=== PATIENT | male | born 1995 | race Caucasian/White ===

== ENCOUNTER 2018-11-04 09:04 | Emergency (ER) | payer BC, OTHER ==
[2018-11-04 09:11] VITALS: BP 155/76; PULSE 87; RESP 20; TEMP 97.8
--- NOTE | 2018-11-04 09:42 | ED ---
General Adult HPI - General Chief complaint: Anxiety Stated complaint: Anxiety Time Seen by Provider: 11/04/18 09:15 Source: patient, RN notes reviewed, old records reviewed Mode of arrival: ambulatory Limitations: no limitations - History of Present Illness Initial comments: Patient's 23-year-old male presented to the emergency room today with a chief complaint of increased anxiety. 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 He states he was released 4 days ago. He states last night he woke up having a panic attack. He does admit that his heart was racing and he felt some tightness in his chest. He states that he had anxiety in the past was on Klonopin in the past. He also admits that his taken Ativan, Xanax, Valium in the past at times. Patient states currently not taking anything. He states she's not sure if it's related to the fact that he's recently released and he is feeling very unsure. Patient denies any suicidal or homicidal thoughts or plans. Patient is currently staying with his mother. Patient denies any other complaints. He does admit that the symptoms have calmed down but is worried that they're going to come back. Patient denies any recent fever , chills, shortness of breath, chest pain, back pain, numbness or tingling, headaches or visual changes, or any other complaints. - Related Data Home Medications Medication Instructions Recorded Confirmed Buprenorphine HCl/Naloxone HCl 1 each SL BID 07/22/14 07/29/14 [Suboxone 8 mg-2 mg Sl Film] QUEtiapine [SEROquel] 200 mg PO BID 07/22/14 07/29/14 Citalopram Hydrobromide [CeleXA] 40 mg PO DAILY 07/29/14 07/29/14 Gabapentin [Neurontin] 800 mg PO BID 07/29/14 07/29/14 LORazepam [Ativan] 0.5 mg PO TID 07/29/14 07/29/14 Previous Rx's Medication Instructions Recorded Divalproex ER [Depakote ER] 500 mg PO BID #60 tab.er.24h 06/29/14 LORazepam [Ativan] 0.5 mg PO TID PRN 3 Days #8 tab 11/04/18 Allergies Allergy/AdvReac Type Severity Reaction Status Date / Time latex Allergy Rash/Hives Verified 11/04/18 09:11 Review of Systems ROS Statement: Those systems with pertinent positive or pertinent negative responses have been documented in the HPI. ROS Other: All systems not noted in ROS Statement are negative. Past Medical History Past Medical History: Seizure Disorder Additional Past Medical History / Comment(s): CHRONIC NECK PAIN, ANXIETY BIPOLAR , last seizure last week History of Any Multi-Drug Resistant Organisms: None Reported Past Surgical History: Tonsillectomy Past Psychological History: ADD/ADHD, Anxiety, Bipolar, Depression Smoking Status: Current every day smoker Past Alcohol Use History: Rare Past Drug Use History: Heroin, Marijuana, Opiates, Prescription Drug Abuse - Past Family History Mother Family Medical History: CVA/TIA General Exam - General Exam Comments Initial Comments: General: The patient is awake and alert, in no distress, and does not appear acutely ill. Eye: There is normal conjunctiva bilaterally. No signs of icterus. Ears, nose, mouth and throat: There are moist mucous membranes and no oral lesions. Neck: The neck is supple, there is no tenderness or JVD. Cardiovascular: There is a regular rate and rhythm. No murmur, rub or gallop is appreciated. Respiratory: Lungs are clear to auscultation, respirations are non-labored, breath sounds are equal. No wheezes, stridor, rales, or rhonchi. Musculoskeletal: Normal ROM, no tenderness. . Neurological: A&O x 3. CN II-XII intact, There are no obvious motor or sensory deficits. Coordination appears grossly intact. Speech is normal. Skin: Skin is warm and dry and no rashes or lesions are noted. Psychiatric: Cooperative, appropriate mood & affect, normal judgment. Limitations: no limitations Course Vital Signs 11/04/18 09:09 Temperature 97.8 F Pulse Rate 87 Respiratory 20 Rate Blood Pressure 155/76 O2 Sat by Pulse 98 Oximetry Medical Decision Making - Medical Decision Making [place] automated prescription system was checked showing the patient has not received any recent prescriptions of controlled substance. Patient does have history of anxiety. Old records were reviewed here or showing the patient had had Valium in the past. Patient will be given a short prescription of Ativan a total of 8 tablets. He is advised to use only if needed. Patient does have a appointment with family physician on Sunday. He has no thoughts of hurting himself or others. Patient will be discharged advised return for any other concerns. Disposition Clinical Impression: Acute anxiety Disposition: HOME SELF-CARE Condition: Good Instructions: Generalized Anxiety Disorder (ED) Additional Instructions: Please use medication as discussed. Please follow-up with family doctor in the next 2-5 days of symptoms have not improved. Please return to emergency room if the symptoms increase or worsen or for any other concerns. Prescriptions: LORazepam [Ativan] 0.5 mg PO TID PRN 3 Days #8 tab PRN Reason: Anxiety Is patient prescribed a controlled substance at d/c from ED?: Yes When asked, does pt state using other controlled substances?: No If prescribed controlled substance>3 days was MAPS reviewed?: Prescribed <3 Days Referrals: None,Stated [Primary Care Provider] - 1-2 days Time of Disposition: 09:41
== END 2018-11-04 09:49 | disposition home or self-care (01) ==
LOC: EC 09:04
DX: F41.0 Panic disorder [episodic paroxysmal anxiety] (principal); R07.89 Other chest pain; G40.909 Epilepsy, unspecified, not intractable, without status epilepticus; F90.9 Attention-deficit hyperactivity disorder, unspecified type; F31.9 Bipolar disorder, unspecified; F17.200 Nicotine dependence, unspecified, uncomplicated; Z79.899 Other long term (current) drug therapy; Z91.040 Latex allergy status
CPT/HCPCS: 99283

== ENCOUNTER 2018-11-08 09:24 | Emergency (ER) | payer OTHER ==
[2018-11-08 09:33] VITALS: BP 154/81; PULSE 90; RESP 18; TEMP 97.6
[2018-11-08] MEDS ORDERED: LORazepam 1 MG TAB PO STA (09:56)
--- NOTE | 2018-11-08 10:01 | ED ---
General Adult HPI - General Chief complaint: Recheck/Abnormal Lab/Rx Stated complaint: panic attack Time Seen by Provider: 11/08/18 09:30 Source: patient, RN notes reviewed Mode of arrival: ambulatory Limitations: no limitations - History of Present Illness Initial comments: This is a 23-year-old male who comes in because he states his been having panic attacks. Patient states she was just released from senior care at the end of September and ever since she's been out of his been having panic attacks throughout the night. Patient states he is finding it hard to be in an open environment. Patient states last night even slept in a closet to make himself feel more comfortable. Patient states he thought he had a physician and he went to his office today because he has medicated the physician no longer accepts Medicaid and sent the patient to the emergency department. Patient states he is going to try to find a doctor that today for Sunday but over the weekend he's worried about having panic attacks and wants a couple Ativan to help him make it to the nights. Patient denies any chest pain difficulty breathing or shortness of breath per patient denies any palpitations. Patient denies any recent fever chills or cough per patient denies abdominal pain patient denies nausea vomiting diarrhea. - Related Data Home Medications Medication Instructions Recorded Confirmed LORazepam [Ativan] 1 mg PO QID 11/08/18 11/08/18 Multivitamins, Thera [Multivitamin 1 tab PO DAILY 11/08/18 11/08/18 (formulary)] Previous Rx's Medication Instructions Recorded LORazepam [Ativan] 1 mg PO BID 3 Days #6 tab 11/08/18 Allergies Allergy/AdvReac Type Severity Reaction Status Date / Time latex Allergy Rash/Hives Verified 11/08/18 09:33 Review of Systems ROS Statement: Those systems with pertinent positive or pertinent negative responses have been documented in the HPI. ROS Other: All systems not noted in ROS Statement are negative. Past Medical History Past Medical History: Seizure Disorder Additional Past Medical History / Comment(s): CHRONIC NECK PAIN, ANXIETY BIPOLAR , last seizure last week History of Any Multi-Drug Resistant Organisms: None Reported Past Surgical History: Tonsillectomy Past Psychological History: ADD/ADHD, Anxiety, Bipolar, Depression Smoking Status: Current every day smoker Past Alcohol Use History: Rare Past Drug Use History: Heroin, Marijuana, Opiates, Prescription Drug Abuse - Past Family History Mother Family Medical History: CVA/TIA General Exam - General Exam Comments Initial Comments: GENERAL: Patient is well-developed and well-nourished. Patient is nontoxic and well- hydrated and is in no acute distress. ENT: Neck is soft and supple. No significant lymphadenopathy is noted. Oropharynx is clear. Moist mucous membranes. Neck has full range of motion without eliciting any pain. EYES: The sclera were anicteric and conjunctiva were pink and moist. Extraocular movements were intact and pupils were equal round and reactive to light. Eyelids were unremarkable. PULMONARY: Unlabored respirations. Good breath sounds bilaterally. No audible rales rhonchi or wheezing was noted. CARDIOVASCULAR: There is a regular rate and rhythm without any murmurs gallops or rubs. ABDOMEN: Soft and nontender with normal bowel sounds. SKIN: Skin is clear with no lesions or rashes and otherwise unremarkable. NEUROLOGIC: Patient is alert and oriented x3. Cranial nerves II through XII are grossly intact. Motor and sensory are also intact. Normal speech, volume and content. Symmetrical smile. MUSCULOSKELETAL: Normal extremities with adequate strength and full range of motion. No lower extremity swelling or edema. No calf tenderness. LYMPHATICS: No significant lymphadenopathy is noted PSYCHIATRIC: Patient seems mildly anxious at this time. Limitations: no limitations Course Vital Signs 11/08/18 09:30 Temperature 97.6 F Pulse Rate 90 Respiratory 18 Rate Blood Pressure 154/81 O2 Sat by Pulse 100 Oximetry Disposition Clinical Impression: Acute anxiety Disposition: HOME SELF-CARE Condition: Good Instructions: Anxiety (ED) Prescriptions: LORazepam [Ativan] 1 mg PO BID 3 Days #6 tab Is patient prescribed a controlled substance at d/c from ED?: No Referrals: None,Stated [Primary Care Provider] - 1-2 days Time of Disposition: 10:01
== END 2018-11-08 10:03 | disposition home or self-care (01) ==
LOC: EC 09:24
DX: F41.9 Anxiety disorder, unspecified (principal); F17.200 Nicotine dependence, unspecified, uncomplicated; Z79.899 Other long term (current) drug therapy; Z91.040 Latex allergy status
CPT/HCPCS: 99283

== ENCOUNTER 2018-11-18 10:52 | Emergency (ER) | payer OTHER ==
[2018-11-18 11:13] VITALS: PULSE 76; RESP 18; TEMP 98.2
[2018-11-18] MEDS ORDERED: LORazepam 0.5 MG TAB PO STA (11:59)
--- NOTE | 2018-11-18 12:04 | ED ---
Psych HPI - General Chief Complaint: Psychiatric Symptoms Stated Complaint: panic attacks-revisit Source: patient Mode of arrival: ambulatory - History of Present Illness Initial Comments: 23-year-old male past medical history of anxiety presenting today for chief complaint of panic attack. Patient states that he has had panic attacks since his release from group home. Patient states that he did have anxiety prior to being incarcerated however this seems to have increased after discharge. He states he thinks about life situations, including work and money. Patient states he was seen here in the past for similar complaints. He states he was discharged with Ativan. Patient states that he takes this only as needed, he attempted to follow up with a primary care provider however was told he needed to go to [facility] for further evaluation for anxiety and prescription of Ativan. Patient states that he has had anxiety for the past 2 days, denies suicidal or homicidal ideations, chest pain, shortness breath, dyspnea on exertion, nausea, vomiting, developing, headache, visual changes or any other complaints. Patient states he has an appointment on Sunday at [facility]. - Related Data Previous Rx's Medication Instructions Recorded LORazepam [Ativan] 1 mg PO BID 3 Days #6 tab 11/08/18 LORazepam [Ativan] 1 mg PO BID 3 Days #6 tab 11/18/18 Allergies Allergy/AdvReac Type Severity Reaction Status Date / Time latex Allergy Rash/Hives Verified 11/18/18 11:30 Review of Systems ROS Statement: Those systems with pertinent positive or pertinent negative responses have been documented in the HPI. ROS Other: All systems not noted in ROS Statement are negative. Past Medical History Past Medical History: Seizure Disorder Additional Past Medical History / Comment(s): CHRONIC NECK PAIN, ANXIETY BIPOLAR , last seizure last week History of Any Multi-Drug Resistant Organisms: None Reported Past Surgical History: Tonsillectomy Past Psychological History: ADD/ADHD, Anxiety, Bipolar, Depression Smoking Status: Current every day smoker Past Alcohol Use History: Rare Past Drug Use History: Heroin, Marijuana, Opiates, Prescription Drug Abuse - Past Family History Mother Family Medical History: CVA/TIA General Exam - General Exam Comments Initial Comments: General: The patient is awake and alert, in no distress, and does not appear acutely ill. Eye: +3 mm pupils are equal, round and reactive to light, extra-ocular movements are intact. No nystagmus. There is normal conjunctiva bilaterally. No signs of icterus. Ears, nose, mouth and throat: There are moist mucous membranes and no oral lesions. Neck: The neck is supple, there is no tenderness or JVD. Cardiovascular: There is a regular rate and rhythm. No murmur, rub or gallop is appreciated. Respiratory: Lungs are clear to auscultation, respirations are non-labored, breath sounds are equal. No wheezes, stridor, rales, or rhonchi. Gastrointestinal: Soft, non-distended, non-tender abdomen without masses or organomegaly noted. There is no rebound or guarding present. No CVA tenderness. Bowel sounds are unremarkable. Musculoskeletal: Normal ROM, no tenderness. Strength 5/5. Sensation intact. Pulses equal bilaterally 2+. Neurological: A&O x 3. CN II-XII intact, There are no obvious motor or sensory deficits. Coordination appears grossly intact. Speech is normal. Skin: Skin is warm and dry and no rashes or lesions are noted. Psychiatric: Cooperative, appropriate mood & affect, normal judgment. Limitations: no limitations Course Vital Signs 11/18/18 11/18/18 11:10 12:55 Temperature 98.2 F Pulse Rate 76 76 Respiratory 18 18 Rate Blood Pressure 134/84 134/80 O2 Sat by Pulse 98 98 Oximetry Medical Decision Making - Medical Decision Making Patient appears well, remainder of review systems negative. as reviewed. Patient was given 3 day supply of Ativan. Patient is to follow-up as directed with the [facility]. Denies any suicidal or homicidal ideations. Case discussed with Dr. Maza who agrees the impression and plan. Patient discharged stable condition appearing well Disposition Clinical Impression: Panic attack, Anxiety Disposition: HOME SELF-CARE Condition: Good Instructions: Panic Attack (ED) Additional Instructions: Please use medication as discussed, no driving, drinking alcohol, working, using with opioids. Please follow-up with [facility] on Sunday as scheduled. Please return to emergency room if the symptoms increase or worsen or for any other concerns, as discussed. Prescriptions: LORazepam [Ativan] 1 mg PO BID 3 Days #6 tab Is patient prescribed a controlled substance at d/c from ED?: No Referrals: None,Stated [Primary Care Provider] - 1-2 days [facility] [NON-STAFF] - 1-2 days Time of Disposition: 12:06
[2018-11-18] MEDS ORDERED: LORazepam 1 MG TAB PO STA (12:32)
[2018-11-18 12:56] VITALS: BP 134/80
== END 2018-11-18 12:56 | disposition home or self-care (01) ==
LOC: EC 10:52
DX: F41.0 Panic disorder [episodic paroxysmal anxiety] (principal); F17.200 Nicotine dependence, unspecified, uncomplicated; Z91.040 Latex allergy status
CPT/HCPCS: 99283

== ENCOUNTER 2018-12-26 12:57 | Emergency (ER) | payer OTHER ==
[2018-12-26 13:03] VITALS: BP 133/78; PULSE 75; RESP 18; TEMP 98.4
--- NOTE | 2018-12-26 13:44 | ED ---
Lower Extremity Injury HPI - General Chief Complaint: Extremity Injury, Lower Stated Complaint: Leg pain Time Seen by Provider: 12/26/18 13:33 Source: patient, RN notes reviewed Mode of arrival: ambulatory Limitations: no limitations - History of Present Illness Initial Comments: 23-year-old male presents emergency Department chief complaint of right foot and ankle pain. Patient states has been bothersome last few days. Patient does admit that he's been working 90 straight as he recently was released from snf and started working. Patient states that he stands all day notices that this is what causes the pain. Patient denies any trauma that he knows about denies any swelling or bruising. Denies any paresthesias no back pain no upper leg pain. - Related Data Previous Rx's Medication Instructions Recorded Ibuprofen [Motrin] 600 mg PO Q8HR PRN #30 tab 12/26/18 Allergies Allergy/AdvReac Type Severity Reaction Status Date / Time latex Allergy Rash/Hives Verified 12/26/18 13:51 Review of Systems ROS Statement: Those systems with pertinent positive or pertinent negative responses have been documented in the HPI. ROS Other: All systems not noted in ROS Statement are negative. Past Medical History Past Medical History: Seizure Disorder Additional Past Medical History / Comment(s): CHRONIC NECK PAIN, ANXIETY BIPOLAR , last seizure last week History of Any Multi-Drug Resistant Organisms: None Reported Past Surgical History: Tonsillectomy Past Psychological History: ADD/ADHD, Anxiety, Bipolar, Depression Smoking Status: Current every day smoker Past Alcohol Use History: Occasional Past Drug Use History: None Reported, Heroin, Marijuana, Opiates, Prescription Drug Abuse - Past Family History Mother Family Medical History: CVA/TIA General Exam Limitations: no limitations General appearance: alert, in no apparent distress Head exam: Present: atraumatic, normocephalic, normal inspection Respiratory exam: Present: normal lung sounds bilaterally. Absent: respiratory distress, wheezes, rales, rhonchi, stridor Cardiovascular Exam: Present: regular rate, normal rhythm, normal heart sounds. Absent: systolic murmur, diastolic murmur, rubs, gallop, clicks Extremities exam: Present: other (Right ankle there is tenderness the anterior portion, no swelling no ecchymosis pain with dorsi flexion and plantar flexion, no pain with inversion or eversion of the ankle, no foot tenderness neurovascular intact) Skin exam: Present: warm, dry, intact, normal color. Absent: rash Course Vital Signs 12/26/18 13:00 Temperature 98.4 F Pulse Rate 75 Respiratory 18 Rate Blood Pressure 133/78 O2 Sat by Pulse 97 Oximetry Medical Decision Making - Medical Decision Making 23-year-old male presents emergency department for right ankle pain. Patient has pain over the anterior surface x-rays obtained which shows possibly remote lateral malleoli are fracture though he has no tenderness. This is not consistent with his injury. Symptoms more consistent with tendinitis. Patient placed in Wilmer wrap will be started on anti-inflammatories and advised to wear supportive Disposition Clinical Impression: Ankle tendinitis Disposition: HOME SELF-CARE Condition: Stable Instructions (If sedation given, give patient instructions): Ankle Sprain (ED) , Tendinitis (ED) Additional Instructions: Please return to the Emergency Department if symptoms worsen or any other concerns. Prescriptions: Ibuprofen [Motrin] 600 mg PO Q8HR PRN #30 tab PRN Reason: Pain Is patient prescribed a controlled substance at d/c from ED?: No Referrals: None,Stated [Primary Care Provider] - 1-2 days Osman Nicole DO [Medical Doctor] - 1-2 days Time of Disposition: 14:23
--- NOTE | 2018-12-26 14:14 | XR ---
EXAMINATION TYPE: XR ankle complete RT DATE OF EXAM: 12/26/2018 COMPARISON: NONE HISTORY: Pain TECHNIQUE: Frontal, lateral and oblique images of the right ankle are obtained. COMPARISON: None. FINDINGS: There is well-corticated ossific density adjacent to the lateral malleolar tip which may r eflect a remote avulsion fracture. Acute avulsion fracture however is difficult to exclude. Mild soft tissue swelling noted. Correlate clinically point tenderness. The joint spaces appear within normal limits. IMPRESSION: Probable remote avulsion fracture lateral malleolar tip. Correlate clinically. See above.
== END 2018-12-26 14:36 | disposition home or self-care (01) ==
LOC: EC 12:57
DX: M77.9 Enthesopathy, unspecified (principal); F17.200 Nicotine dependence, unspecified, uncomplicated; Z91.040 Latex allergy status
CPT/HCPCS: 99283

== ENCOUNTER 2019-03-04 17:01 | Emergency (ER) | payer OTHER ==
[2019-03-04 17:16] VITALS: RESP 20; TEMP 98.8
[2019-03-04] MEDS ORDERED: SODIUM CHLORIDE 0.9% 1,000 ML IV STA (17:20)
[2019-03-04] MEDS ORDERED: LORazepam 2 MG/ML INJ IV STA (17:24)
--- NOTE | 2019-03-04 17:24 | ED ---
General Adult HPI - General Chief complaint: Altered Mental Status Stated complaint: seizure Time Seen by Provider: 03/04/19 17:03 Source: family, EMS Mode of arrival: EMS Limitations: altered mental status - History of Present Illness Initial comments: Dictation was produced using [employer] dictation software. please excuse any grammatical, word or spelling errors. Chief Complaint: 23-year-old male brought to the emergency department by EMS for syncope versus seizure. History of Present Illness: Patient is a 23-year-old male past medical history of bipolar disease and anxiety presents with syncope versus seizure. EMS was called for patient allegedly having a seizure. He was found on the lawn by EMS. Patient states he was at a friend's house where he was drinking pop. He remembers he woke up and ambulance rate. Patient's concerned he had a seizure. Patient states he occasionally past secondary to illicit drug abuse. Patient was seen having seizure-like activity. EMS evaluated patient and applied sternal rub and patient stop shaking. Patient furthermore was not postictal. It has no complaints at this time. He states that he feels out of it however unable to give any detailed explanation as to what he is feeling. Patient is a poor historian. The ROS documented in this emergency department record has been reviewed and confirmed by me. Those systems with pertinent positive or negative responses have been documented in the HPI. All other systems are other negative and/or noncontributory. PHYSICAL EXAM: General Impression: Alert and oriented x3, not in acute distress HEENT: Normocephalic atraumatic, extra-ocular movements intact, pupils equal and reactive to light bilaterally, mucous membranes moist. Cardiovascular: Heart regular rate and rhythm, S1&S2 audible, no murmurs, rubs or gallops Chest: Lungs clear to auscultation bilaterally, no rhonchi, no wheeze, no rales Abdomen: Bowel sounds present, abdomen soft, non-tender, non-distended, no organomegaly Musculoskeletal: Pulses present and equal in all extremities, no peripheral edema Motor: no focal deficits noted Neurological: CN II-XII grossly intact, no focal motor or sensory deficits noted Skin: Intact with no visualized rashes Psych: Anxious ED course: 23-year-old male presents with syncope. Doesn't appear that patient had seizure given that she responded to noxious stimuli and stop shaking. Furthermore, patient was not postictal. On arrival shows heart rate of 1:30, rest of vital signs within acceptable limits. Clinical presentation suggestive of sympathomimetic toxidrome given elevated heart rate, hypertension and slight agitation. Patient given some Ativan.Laboratory evaluation obtained. CBC, metabolic panel, rapid urine drug screen obtained. CBC and metabolic panel unremarkable. Patient is positive for methamphetamines. Patient given some Ativan and intravenous fluids. He is observed in emergency Department with improvement of his vital signs. Patient feels well. Patient is clear for disc harge. Return parameters discussed. Patient will be going home with his mother. Patient's symptoms likely secondary to mild sympathomimetic toxicity. Patient has plans to follow up with primary care physician. EKG interpretation: Ventricular rate 110, sinus tachycardia, ME interval 154, care is 94, QTC 460. No ME prolongation, no QTC prolongation, no ST or T-wave changes noted. Overall, this EKG is unremarkable - Related Data Home Medications Medication Instructions Recorded Confirmed Melatonin 5 mg PO HS PRN 03/04/19 03/04/19 Multivitamins, Thera [Multivitamin 1 tab PO DAILY 03/04/19 03/04/19 (formulary)] Allergies Allergy/AdvReac Type Severity Reaction Status Date / Time latex Allergy Rash/Hives Verified 03/04/19 17:31 Review of Systems ROS Statement: Those systems with pertinent positive or pertinent negative responses have been documented in the HPI. ROS Other: All systems not noted in ROS Statement are negative. Past Medical History Past Medical History: Seizure Disorder Additional Past Medical History / Comment(s): CHRONIC NECK PAIN, ANXIETY BIPO LAR, last seizure last week History of Any Multi-Drug Resistant Organisms: None Reported Past Surgical History: Tonsillectomy Past Psychological History: ADD/ADHD, Anxiety, Bipolar, Depression Smoking Status: Current every day smoker Past Alcohol Use History: Occasional Past Drug Use History: None Reported, Heroin, Marijuana, Opiates, Prescription Drug Abuse - Past Family History Mother Family Medical History: CVA/TIA General Exam Limitations: altered mental status Course Vital Signs 03/04/19 03/04/19 03/04/19 17:10 17:16 17:20 Temperature 98.8 F Pulse Rate 130 H 109 H 115 H Respiratory 20 Rate Blood Pressure 164/107 O2 Sat by Pulse 98 96 97 Oximetry 03/04/19 03/04/19 03/04/19 17:30 17:40 17:50 Temperature Pulse Rate 115 H 109 H 106 H Respiratory Rate Blood Pressure 148/95 142/113 215/111 O2 Sat by Pulse Oximetry 03/04/19 03/04/19 03/04/19 18:00 18:10 18:20 Temperature Pulse Rate 111 H 113 H 110 H Respiratory Rate Blood Pressure 215/111 134/66 114/72 O2 Sat by Pulse 96 96 95 Oximetry 03/04/19 18:30 Temperature Pulse Rate 108 H Respiratory Rate Blood Pressure 114/72 O2 Sat by Pulse 97 Oximetry Medical Decision Making - Lab Data Result diagrams: 03/04/19 17:14 03/04/19 17:14 Lab Results 03/04/19 03/04/19 03/04/19 Range/Units 17:14 17:14 18:01 WBC 11.4 H (3.8-10.6) k/uL RBC 4.59 (4.30-5.90) m/uL Hgb 15.4 (13.0-17.5) gm/dL Hct 44.0 (39.0-53.0) % MCV 96.0 (80.0-100.0) fL MCH 33.6 (25.0-35.0) pg MCHC 35.0 (31.0-37.0) g/dL RDW 13.3 (11.5-15.5) % Plt Count 307 (150-450) k/uL Neutrophils % 70 % Lymphocytes % 19 % Monocytes % 9 % Eosinophils % 0 % Basophils % 0 % Neutrophils # 8.0 H (1.3-7.7) k/uL Lymphocytes # 2.1 (1.0-4.8) k/uL Monocytes # 1.1 H (0-1.0) k/uL Eosinophils # 0.1 (0-0.7) k/uL Basophils # 0.0 (0-0.2) k/uL Sodium 139 (137-145) mmol/L Potassium 3.9 (3.5-5.1) mmol/L Chloride 104 (98-107) mmol/L Carbon Dioxide 22 (22-30) mmol/L Anion Gap 13 mmol/L BUN 13 (9-20) mg/dL Creatinine 0.81 (0.66-1.25) mg/dL Est GFR (CKD-EPI)AfAm >90 (>60 ml/min/1.73 sqM) Est GFR (CKD-EPI)NonAf >90 (>60 ml/min/1.73 sqM) Glucose 100 H (74-99) mg/dL Calcium 10.0 (8.4-10.2) mg/dL Total Bilirubin 1.1 (0.2-1.3) mg/dL AST 83 H (17-59) U/L ALT 51 (21-72) U/L Alkaline Phosphatase 80 (38-126) U/L Total Protein 7.6 (6.3-8.2) g/dL Albumin 5.0 (3.5-5.0) g/dL Salicylates <1.0 mg/dL Urine Opiates Screen Not Detected (NotDetected) Ur Oxycodone Screen Not Detected (NotDetected) Urine Methadone Screen Not Detected (NotDetected) Ur Propoxyphene Screen Not Detected (NotDetected) Acetaminophen <10.0 ug/mL Ur Barbiturates Screen Not Detected (NotDetected) U Tricyclic Antidepress Not Detected (NotDetected) Ur Phencyclidine Scrn Not Detected (NotDetected) Ur Amphetamines Screen Not Detected (NotDetected) U Methamphetamines Scrn Detected H (NotDetected) U Benzodiazepines Scrn Not Detected (NotDetected) Urine Cocaine Screen Not Detected (NotDetected) U Marijuana (THC) Screen Not Detected (NotDetected) Serum Alcohol <10 mg/dL Disposition Clinical Impression: Syncope Disposition: HOME SELF-CARE Condition: Good Instructions (If sedation given, give patient instructions): Syncope (ED) Is patient prescribed a controlled substance at d/c from ED?: No Referrals: None,Stated [Primary Care Provider] - 1-2 days Time of Disposition: 19:29
[2019-03-04 17:34] LABS: Basophils % (A) 0 %; Eosinophils # (A) 0.1 k/uL (0-0.7); Eosinophils % (A) 0 %; HGB 15.4 gm/dL (13.0-17.5); Lymphocytes # (A) 2.1 k/uL (1.0-4.8); Lymphocytes % (A) 19 %; MCH 33.6 pg (25.0-35.0); Monocytes # (A) 1.1 k/uL (0-1.0); Monocytes % (A) 9 %; Neutrophils % (A) 70 %; Platelet Count 307 k/uL (150-450); RBC 4.59 m/uL (4.30-5.90); RDW 13.3 % (11.5-15.5); WBC 11.4 k/uL (3.8-10.6)
[2019-03-04 17:50] LABS: ALT 51 U/L (21-72); AST 83 U/L (17-59); Acetaminophen <10.0 ug/mL; Alcohol <10 mg/dL; Alkaline Phosphatase 80 U/L (38-126); Anion Gap 13 mmol/L; Blood Urea Nitrogen 13 mg/dL (9-20); Carbon Dioxide 22 mmol/L (22-30); Chloride 104 mmol/L (98-107); Glucose 100 mg/dL (74-99); Potassium 3.9 mmol/L (3.5-5.1); Salicylate <1.0 mg/dL; Sodium 139 mmol/L (137-145); Total Bilirubin 1.1 mg/dL (0.2-1.3); Total Protein 7.6 g/dL (6.3-8.2)
[2019-03-04 18:14] LABS: Amphetamine Screen,Urine Not Detected (NotDetected); Barbiturate Screen,Urine Not Detected (NotDetected); Benzodiazepines Screen,Urine Not Detected (NotDetected); Cocaine Screen,Urine Not Detected (NotDetected); Methadone Screen, Urine Not Detected (NotDetected); Opiate Screen,Urine Not Detected (NotDetected); Oxycodone Screen, Urine Not Detected (NotDetected); Phencyclidine Screen,Urine Not Detected (NotDetected); Tricyclic Antidepressant,Urine Not Detected (NotDetected); Urn Cannabinoid Scrn Not Detected (NotDetected)
[2019-03-04 19:43] VITALS: BP 121/67; PULSE 95
== END 2019-03-04 19:44 | disposition home or self-care (01) ==
LOC: EC 17:01
DX: R55 Syncope and collapse (principal); F17.200 Nicotine dependence, unspecified, uncomplicated; Z91.040 Latex allergy status
CPT/HCPCS: 36415; 80053; 80306; 80320; 80329; 83520; 85025; 93005; 96361; 96374; 99285

== ENCOUNTER 2019-05-22 13:16 | Emergency (ER) | payer OTHER ==
[2019-05-22 13:32] VITALS: RESP 16
[2019-05-22] MEDS ORDERED: AZITHROMYCIN 500 MG TAB PO STA (13:44)
[2019-05-22] MEDS ORDERED: cefTRIAXone 250 MG VIAL IM STA (13:44)
[2019-05-22] MEDS ORDERED: ALPRAZolam 0.5 MG TAB PO STA (14:13)
[2019-05-22] MEDS ORDERED: ACYCLOVIR 800 MG TAB PO STA (14:13)
--- NOTE | 2019-05-22 14:13 | ED ---
Anxiety HPI - General Chief Complaint: Anxiety Stated Complaint: panic attack & STD problem Time Seen by Provider: 05/22/19 13:26 Source: patient Mode of arrival: ambulatory - History of Present Illness Initial Comments: 23yo presenting for anxiety and penile lesions. Patient states he has had anxiety is out of state anxiety medications. Cannot department until Sunday. Patient states he is affect is having a panic attack but with like his medications. Patient denies chest patient was brought. Patient states he is more so concerned about the penile lesions she has had he states his had unprotected sex. Patient states he has a small amount dysuria with urination. Patient denies hematuria he denies any painless lesions he states the areas that are noted on his penis are tender to palpation. Remaining review of systems negative. Upon arrival patient appears well. - Related Data Home Medications: Home Medications Medication Instructions Recorded Confirmed ALPRAZolam [Xanax] 1 mg PO DAILY PRN 05/22/19 05/22/19 Buprenorphine HCl [Subutex] 8 mg SL DAILY 05/22/19 05/22/19 Previous Rx's Medication Instructions Recorded Acyclovir 400 mg PO TID 7 Days #21 tablet 05/22/19 Allergies/Adverse Reactions: Allergies Allergy/AdvReac Type Severity Reaction Status Date / Time latex Allergy Rash/Hives Verified 05/22/19 15:02 Review of Systems ROS Statement: Those systems with pertinent positive or pertinent negative responses have been documented in the HPI. ROS Other: All systems not noted in ROS Statement are negative. Past Medical History Past Medical History: Seizure Disorder Additional Past Medical History / Comment(s): CHRONIC NECK PAIN, ANXIETY, BIPOLAR, last seizure last week History of Any Multi-Drug Resistant Organisms: None Reported Past Surgical History: Tonsillectomy Past Psychological History: ADD/ADHD, Anxiety, Bipolar, Depression Smoking Status: Current every day smoker Past Alcohol Use History: Occasional Past Drug Use History: None Reported, Heroin, Marijuana, Opiates, Prescription Drug Abuse - Past Family History Mother Family Medical History: CVA/TIA General Exam - General Exam Comments Initial Comments: General: The patient is awake and alert, in no distress, and does not appear acutely ill. Eye: Pupils are equal, round and reactive to light, extra-ocular movements are intact. No nystagmus. There is normal conjunctiva bilaterally. No signs of icterus. Ears, nose, mouth and throat: There are moist mucous membranes and no oral lesions. Neck: The neck is supple, there is no tenderness or JVD. Cardiovascular: There is a regular rate and rhythm. No murmur, rub or gallop is appreciated. Respiratory: Lungs are clear to auscultation, respirations are non-labored, breath sounds are equal. No wheezes, stridor, rales, or rhonchi. Gastrointestinal: Soft, non-distended, non-tender abdomen without masses or organomegaly noted. There is no rebound or guarding present. Musculoskeletal: Normal ROM, no tenderness. Strength 5/5. Sensation intact. Pulses equal bilaterally 2+. Neurological: A&O x 3. CN II-XII intact, There are no obvious motor or sensory deficits. Coordination appears grossly intact. Speech is normal. Skin: Skin is warm and dry and no rashes or lesions are noted. vesicular lesions noted on scrotum and penile glass cleaning machine tender. Psychiatric: Cooperative, appropriate mood & affect, normal judgment. Limitations: no limitations Course Vital Signs 05/22/19 05/22/19 13:29 15:20 Temperature 97.7 F 97.9 F Pulse Rate 85 88 Respiratory 16 16 Rate Blood Pressure 134/76 130/62 O2 Sat by Pulse 99 98 Oximetry Medical Decision Making - Medical Decision Making 23-year-old presented for medication refill. Patient is provided antiemetics emergency department however feel more comfortable patient getting medications from primary provider. Patient denies any current panic. Patient denies chest pain shortness breath. States his typical anxiety. Patient is penile lesions consistent with herpes Symplex. Patient be treated cycle here. States sex was discussed. Return parameters were discussed. Patient was treated for gonorrhea and chlamydia as well. Patient was discharged appearing well, patient was requesting discharge. Disposition Clinical Impression: Anxiety disorder, Herpes Disposition: HOME SELF-CARE Condition: Good Instructions (If sedation given, give patient instructions): Generalized Anxiety Disorder (ED) Additional Instructions: Please use medication as discussed. Please follow-up with family doctor in the next 2 days of symptoms have not improved. Please return to emergency room if the symptoms increase or worsen or for any other concerns. Prescriptions: Acyclovir 400 mg PO TID 7 Days #21 tablet Is patient prescribed a controlled substance at d/c from ED?: No Referrals: Nonstaff,Physician [Primary Care Provider] - 1-2 days Time of Disposition: 15:01
[2019-05-22 15:26] VITALS: BP 130/62; PULSE 88; TEMP 97.9
[2019-05-23 12:45] LABS: C. trachomatis,PCR Negative (Neg,Equiv); Chlamydia trachomatis Source Urine
[2019-05-23 12:54] LABS: N. gonorrhoeae,PCR Negative (Neg,Equiv); Neisseria Source Urine
== END 2019-05-22 15:20 | disposition home or self-care (01) ==
LOC: EC 13:16
DX: F41.0 Panic disorder [episodic paroxysmal anxiety] (principal); B00.9 Herpesviral infection, unspecified; F17.200 Nicotine dependence, unspecified, uncomplicated; Z79.899 Other long term (current) drug therapy; Z91.040 Latex allergy status
CPT/HCPCS: 87491; 87591; 99283; 96372; J0696

== ENCOUNTER 2020-07-13 11:52 | Emergency (ER) | payer OTHER ==
[2020-07-13 12:09] VITALS: BP 149/52; PULSE 78; RESP 18; TEMP 98
[2020-07-13] MEDS ORDERED: HYDROcodone/APAP 7.5-325MG 1 EACH TAB PO ONE (12:28)
--- NOTE | 2020-07-13 12:53 | XR ---
EXAMINATION TYPE: XR shoulder complete RT, XR clavicle RT DATE OF EXAM: 07/13/2020 CLINICAL HISTORY: Clavicle fracture one week ago with increasing pain after fall injury. TECHNIQUE: Three views of the right shoulder are obtained. 2 views right clavicle. COMPARISON: None. FINDINGS: There is acute or subacute minimally displaced fracture through distal one third of right clavicle. Acromioclavicular joint is not displaced. No additional fracture is seen. Glenohumeral join t is preserved. Overlying soft tissues unremarkable. Visualized ribs are intact. IMPRESSION: There is acute or subacute minimally displaced fracture through distal one third of righ t clavicle. Correlate clinically.
--- NOTE | 2020-07-13 12:56 | ED ---
Upper Extremity HPI - General Chief Complaint: Extremity Injury, Upper Stated Complaint: back pain Time Seen by Provider: 07/13/20 12:15 Source: patient Mode of arrival: ambulatory Limitations: no limitations - History of Present Illness Initial Comments: 24 yo male presnting for increasing right shoulder pain. Patient states he fell down stairs two nights ago, then presented to [facility] for evaluation of right shoulder pain anteriorly. Patient states he did hit his head at the time and was evaluated at [facility]. He denies headaches, visual changes, nausea, vomiting but states that last night when walking in the dark in his new home he tripped over one of the boxes. He states he caught himself but feels that he strained in right arm in the process and wanted to be sure nothign was knocked out of place. Patient states that he did not directly fall onto the shoudler nor sustain injury to head or neck. Jessy denies chest pain, SOB he denies additional complaints Patient also states he is out of the ultram prescription he was provided. He states he has orthopedic appointment scheduled for next week "somewhere out of town" - Related Data Home Medications Medication Instructions Recorded Confirmed ALPRAZolam [Xanax] 1 mg PO DAILY PRN 05/22/19 05/22/19 buprenorphine HCL [Subutex] 8 mg SL DAILY 05/22/19 05/22/19 Previous Rx's Medication Instructions Recorded Acyclovir 400 mg PO TID 7 Days #21 tablet 05/22/19 Allergies Allergy/AdvReac Type Severity Reaction Status Date / Time latex Allergy Rash/Hives Verified 07/13/20 12:09 Review of Systems ROS Statement: Those systems with pertinent positive or pertinent negative responses have been documented in the HPI. ROS Other: All systems not noted in ROS Statement are negative. Past Medical History Past Medical History: Seizure Disorder Additional Past Medical History / Comment(s): CHRONIC NECK PAIN, ANXIETY, BIPOLAR, last seizure last week History of Any Multi-Drug Resistant Organisms: None Reported Past Surgical History: Tonsillectomy Past Psychological History: ADD/ADHD, Anxiety, Bipolar, Depression Smoking Status: Current every day smoker Past Alcohol Use History: Occasional Past Drug Use History: None Reported, Heroin, Marijuana, Opiates, Prescription Drug Abuse - Past Family History Mother Family Medical History: CVA/TIA General Exam - General Exam Comments Initial Comments: General: The patient is awake and alert, in no distress, and does not appear acutely ill. Eye: +3 mm pupils are equal, round and reactive to light, extra-ocular movements are intact. No nystagmus. There is normal conjunctiva bilaterally. No signs of icterus. Ears, nose, mouth and throat: There are moist mucous membranes and no oral lesions. Neck: The neck is supple, there is no tenderness or JVD. Cardiovascular: There is a regular rate and rhythm. No murmur, rub or gallop is appreciated. Respiratory: Lungs are clear to auscultation, respirations are non-labored, breath sounds are equal. No wheezes, stridor, rales, or rhonchi. Gastrointestinal: Soft, non-distended, non-tender abdomen without masses or organomegaly noted. There is no rebound or guarding present. Musculoskeletal: No tending of skin or brusiing noted on inspection of the right shooulder. No scapular pain to palpation. Pain over clavicle and anterior right shoulder. Refuses to range or strength test due to pain at the right shoulder, there is full ROm and strength at elbow and wrists b/l. Patient is able to make the okay thumbs-up opposable digit of thumb and cross index and middel fingers. Strength 5/5 of the elbows/ wrists b/l- no wrist drop. Sensation intact. Radial pulses equal bilaterally 2+. Neurological: A&O x 3. CN II-XII intact grossly, There are no obvious motor or sensory deficits. Coordination appears grossly intact. Speech is normal. Skin: Skin is warm and dry and no rashes or lesions are noted. Psychiatric: Cooperative, appropriate mood & affect, normal judgment. Limitations: no limitations Course Vital Signs 07/13/20 07/13/20 12:06 12:22 Temperature 98.0 F Pulse Rate 78 Respiratory 18 18 Rate Blood Pressure 149/52 O2 Sat by Pulse 100 Oximetry Medical Decision Making - Medical Decision Making XR reveals right distal clavicular fracture, no tentin on exam. Patient in sling. Patient has no scapular pain. XR shoulder does not reveal additional injuries. Patient given norco. Patient requesting gabapentin, i do not feel this is appropriate at this time. patient given tylenol #3 starter pack, appropriate use discussed, pt requesting a new orthopedic physician in town--provided Dr. Saunders f/u information. Patient is neurovascularly intact at discharge appearing well after discussed the case with attending provider Dr. Herrmann Disposition Clinical Impression: Clavicle fracture Disposition: HOME SELF-CARE Condition: Good Instructions (If sedation given, give patient instructions): Clavicle Fracture (ED) Additional Instructions: Please use medication as discussed. Please follow-up with orthopedic surgery in next week. Please return to emergency room if the symptoms increase or worsen or for any other concerns. Is patient prescribed a controlled substance at d/c from ED?: No Referrals: None,Stated [Primary Care Provider] - 1-2 days Murali Calloway MD [STAFF PHYSICIAN] - 1-2 days Time of Disposition: 12:55
[2020-07-13] MEDS ORDERED: ACET/COD 300 MG/30 MG STARTER PACK 6 TAB BTL PO STA (12:59)
== END 2020-07-13 13:00 | disposition home or self-care (01) ==
LOC: EC 11:52
DX: S42.031A Displaced fracture of lateral end of right clavicle, initial encounter for closed fracture (principal); F41.9 Anxiety disorder, unspecified; F31.9 Bipolar disorder, unspecified; F17.200 Nicotine dependence, unspecified, uncomplicated; Z79.899 Other long term (current) drug therapy; Z91.040 Latex allergy status; W10.9XXA Fall (on) (from) unspecified stairs and steps, initial encounter
CPT/HCPCS: 99283

== ENCOUNTER 2020-07-20 04:57 | Emergency (ER) | payer OTHER ==
[2020-07-20 05:03] VITALS: BP 133/94; PULSE 107; RESP 22; TEMP 98
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
--- NOTE | 2020-07-20 05:16 | XR ---
EXAMINATION TYPE: XR clavicle RT DATE OF EXAM: 07/20/2020 COMPARISON: 07/13/2020 HISTORY: Pain TECHNIQUE: 2 views FINDINGS: There is nondisplaced fracture lateral and of the clavicle. Glenohumeral joint is intact. A cromion is intact. IMPRESSION: Nondisplaced lateral clavicle fracture not changed in position compared to recent exam.
[2020-07-20] MEDS ORDERED: KETOROLAC 15 MG/ML 1 ML VIAL IM STA (05:22)
== END 2020-07-20 05:47 | disposition home or self-care (01) ==
LOC: EC 04:57
DX: S42.031A Displaced fracture of lateral end of right clavicle, initial encounter for closed fracture (principal); F41.9 Anxiety disorder, unspecified; F32.9 Major depressive disorder, single episode, unspecified; F17.200 Nicotine dependence, unspecified, uncomplicated; Z79.891 Long term (current) use of opiate analgesic; Z91.040 Latex allergy status; W01.0XXA Fall on same level from slipping, tripping and stumbling without subsequent striking against object, initial encounter
CPT/HCPCS: 73000; 99283; 96372; J1885

== ENCOUNTER 2020-10-30 13:19 | Emergency (ER) | payer OTHER ==
[2020-10-30 13:25] VITALS: BP 167/76; PULSE 106; RESP 20; TEMP 99.1
[2020-10-30] MEDS ORDERED: diazePAM 5 MG TAB PO STA (14:06)
--- NOTE | 2020-10-30 14:45 | ED ---
General Adult HPI - General Chief complaint: Anxiety Stated complaint: Anxiety Time Seen by Provider: 10/30/20 13:40 Source: patient, RN notes reviewed, old records reviewed Mode of arrival: ambulatory Limitations: no limitations - History of Present Illness Initial comments: 25-year-old male patient to ED for evaluation of anxiety patient reports that he is feeling very anxious. Denies any suicidal homicidal ideations. Denies any physical complaints. Patient reports that he was taking Valium and he just ran out yesterday. Systemic: Pt denies fatigue, fever/chills, rash. Pt denies weakness, night sweats, weight loss. Neuro: Pt denies headache, visual disturbances, syncope or pre-syncope. HEENT: Pt denies ocular discharge or irritation, otalgia, rhinorrhea, pharyngitis or notable lymphadenopathy. Cardiopulmonary: Pt denies chest pain, SOB, heart palpitations, dyspnea on exertion. Abdominal/GI: Pt denies abdominal pain, n/v/d. : Pt denies dysuria, burning w/ urination, frequency/urgency. Denies new onset urinary or bowel incontinence. MSK: Pt denies myalgia, loss of strength or function in extremities. Neuro: Pt denies new onset weakness, paresthesias. - Related Data Home Medications Medication Instructions Recorded Confirmed ALPRAZolam [Xanax] 1 mg PO DAILY PRN 05/22/19 05/22/19 buprenorphine HCL [Subutex] 8 mg SL DAILY 05/22/19 05/22/19 Previous Rx's Medication Instructions Recorded Acyclovir 400 mg PO TID 7 Days #21 tablet 05/22/19 Allergies Allergy/AdvReac Type Severity Reaction Status Date / Time latex Allergy Rash/Hives Verified 10/30/20 13:25 Review of Systems ROS Statement: Those systems with pertinent positive or pertinent negative responses have been documented in the HPI. ROS Other: All systems not noted in ROS Statement are negative. Past Medical History Past Medical History: Seizure Disorder Additional Past Medical History / Comment(s): CHRONIC NECK PAIN, ANXIETY, BIPOLAR, last seizure last week History of Any Multi-Drug Resistant Organisms: None Reported Past Surgical History: Tonsillectomy Past Psychological History: ADD/ADHD, Anxiety, Bipolar, Depression Smoking Status: Current every day smoker Past Alcohol Use History: Occasional Past Drug Use History: None Reported, Heroin, Marijuana, Opiates, Prescription Drug Abuse - Past Family History Mother Family Medical History: CVA/TIA General Exam - General Exam Comments Initial Comments: Constitutional: NAD, AOX3, Pt has pleasant affect. HEENT: NC/AT, trachea midline, neck supple, no lymphadenopathy. External ears appear normal, without discharge. Mucous membranes moist. Eyes PERRLA, EOM intact. There is no scleral icterus. No pallor noted. Cardiopulmonary: RRR, no murmurs, rubs or gallops, no JVD noted. Lungs CTAB in anterior and posterior [place]. No peripheral edema. Abdominal exam: Abdomen soft and non-distended. Neuro: CN II-XII grossly intact. No nuchal rigidity. MSK: Full active ROM in upper and lower extremities. Limitations: no limitations Course Vital Signs 10/30/20 13:23 Temperature 99.1 F Pulse Rate 106 H Respiratory 20 Rate Blood Pressure 167/76 O2 Sat by Pulse 98 Oximetry Medical Decision Making - Medical Decision Making 25-year-old male patient to ED for evaluation of anxiety. Patient reports he is feeling very anxious. Denies any suicidal or homicidal ideations. He reports that he was prescribed Valium and he just ran out. Physical exam negative for acute pathology. MAPs are reviewed reviewed. Patient last had any sort of anxiolytic prescribed to him in November. Patient will be given one dose of anxiolytic for acute anxiety in ED but will have to follow up with PCP and [facility] for any further prescriptions. He denies any other drug use. He declines EPS evaluation in ED. Will return to ED with any worsening symptoms. Case discussed with Dr. Herrmann. Disposition Clinical Impression: Acute anxiety Disposition: HOME SELF-CARE Condition: Stable Instructions (If sedation given, give patient instructions): Generalized Anxiety Disorder (ED) Additional Instructions: Follow up with PCP and [facility] tomorrow. Return to ED with any worsening symptoms. [facility] Address: [address] [place], [place] [id number] Is patient prescribed a controlled substance at d/c from ED?: No Referrals: Stephen Khan MD [Primary Care Provider] - 1-2 days
[2020-10-30] MEDS ORDERED: LORazepam 1 MG TAB PO STA (14:50)
== END 2020-10-30 15:05 | disposition home or self-care (01) ==
LOC: EC 13:19
DX: F41.9 Anxiety disorder, unspecified (principal); F31.9 Bipolar disorder, unspecified; F90.9 Attention-deficit hyperactivity disorder, unspecified type; Z79.899 Other long term (current) drug therapy; F17.200 Nicotine dependence, unspecified, uncomplicated; Z53.20 Procedure and treatment not carried out because of patient's decision for unspecified reasons; Z91.040 Latex allergy status; Z86.69 Personal history of other diseases of the nervous system and sense organs
CPT/HCPCS: 99283

== ENCOUNTER 2020-12-13 12:15 | Emergency (ER) | payer OTHER ==
[2020-12-13 12:44] VITALS: RESP 16; TEMP 97.6
--- NOTE | 2020-12-13 12:49 | ED ---
Psych HPI - General Chief Complaint: Psychiatric Symptoms Stated Complaint: mental health Time Seen by Provider: 12/13/20 12:15 Source: patient, EMS, RN notes reviewed Mode of arrival: EMS - History of Present Illness Initial Comments: This is a 25-year-old male with a history of substance abuse post traumatic stress disorder who is brought in under petition by police after ingesting 2 xani- bars and two 8 balls of cocaine patient did voice suicidal thoughts and ideation he apparently was carrying a BB gun and was perseverating and shooting himself as well as his ex-girlfriend. There may be access to firearms in his mother's house. The patient initially apparently was found with heroin and methadone. MD Complaint: suicidal ideation, feels depressed, other - Related Data Home Medications Medication Instructions Recorded Confirmed FLUoxetine HCL [PROzac] 10 mg PO DAILY 12/13/20 12/13/20 Gabapentin 600 mg PO BID 12/13/20 12/13/20 Nicotine 21Mg/24Hr Patch [Habitrol] 1 patch TRANSDERM DAILY 12/13/20 12/13/20 lamoTRIgine [LaMICtal] 25 mg PO HS 12/13/20 12/13/20 traZODone HCL 50 mg PO DAILY 12/13/20 12/13/20 Allergies Allergy/AdvReac Type Severity Reaction Status Date / Time latex Allergy Rash/Hives Verified 12/13/20 13:36 Review of Systems ROS Statement: Those systems with pertinent positive or pertinent negative responses have been documented in the HPI. ROS Other: All systems not noted in ROS Statement are negative. Past Medical History Past Medical History: Seizure Disorder Additional Past Medical History / Comment(s): CHRONIC NECK PAIN, ANXIETY, BIPOLAR, last seizure last week History of Any Multi-Drug Resistant Organisms: None Reported Past Surgical History: Tonsillectomy Past Psychological History: ADD/ADHD, Anxiety, Bipolar, Depression Smoking Status: Current every day smoker Past Alcohol Use History: Occasional Past Drug Use History: None Reported, Heroin, Marijuana, Opiates, Prescription Drug Abuse - Past Family History Mother Family Medical History: CVA/TIA General Exam - General Exam Comments Initial Comments: Is a well-developed sec appearing male who is awake alert but lethargic. General appearance: alert, lethargic Head exam: Present: atraumatic, normocephalic, normal inspection Eye exam: Present: normal appearance, PERRL, EOMI. Absent: scleral icterus, conjunctival injection, periorbital swelling ENT exam: Present: normal exam, mucous membranes moist Neck exam: Present: normal inspection. Absent: tenderness, meningismus, lymphadenopathy Respiratory exam: Present: normal lung sounds bilaterally. Absent: respiratory distress, wheezes, rales, rhonchi, stridor Cardiovascular Exam: Present: regular rate, normal rhythm, normal heart sounds. Absent: systolic murmur, diastolic murmur, rubs, gallop, clicks GI/Abdominal exam: Present: soft, normal bowel sounds. Absent: distended, tenderness, guarding, rebound, rigid Extremities exam: Present: normal inspection, full ROM, normal capillary refill. Absent: tenderness, pedal edema, joint swelling, calf tenderness Back exam: Present: normal inspection Neurological exam: Present: alert, oriented X3, CN II-XII intact Psychiatric exam: Present: depressed, flat affect, suicidal ideation Skin exam: Present: warm, dry, intact, normal color. Absent: rash Course Vital Signs 12/13/20 12/13/20 12:24 13:54 Temperature 97.6 F Pulse Rate 69 60 Respiratory 16 16 Rate Blood Pressure 145/95 102/64 O2 Sat by Pulse 97 100 Oximetry Medical Decision Making - Medical Decision Making The patient was evaluated by EPS service and at this time found not to be a risk to himself or anyone else he is denying suicidal or homicidal ideation. He had been drug-free for 60 days and then started using last several days. He does admit that he says inappropriate things was using medication. He does have a safety plan in place he does have follow-up. He will be discharged - Lab Data Lab Results 12/13/20 Range/Units 12:38 Urine Opiates Screen Detected H (NotDetected) Ur Oxycodone Screen Not Detected (NotDetected) Urine Methadone Screen Detected H (NotDetected) Ur Propoxyphene Screen Not Detected (NotDetected) Ur Barbiturates Screen Detected H (NotDetected) U Tricyclic Antidepress Not Detected (NotDetected) Ur Phencyclidine Scrn Not Detected (NotDetected) Ur Amphetamines Screen Not Detected (NotDetected) U Methamphetamines Scrn Not Detected (NotDetected) U Benzodiazepines Scrn Detected H (NotDetected) Urine Cocaine Screen Detected H (NotDetected) U Marijuana (THC) Screen Detected H (NotDetected) - EKG Data -: EKG Interpreted by Me Rate: normal EKG Comments: Normal sinus rhythm of 55. Interval was 72 QRS duration 106 QT since QTC 448/[address] configuration Disposition Clinical Impression: Adjustment reaction of adult life, Drug abuse Disposition: HOME SELF-CARE Condition: Good Instructions (If sedation given, give patient instructions): Mood Disorders (ED), Polysubstance Abuse (ED) Additional Instructions: Keep follow-up appointments and referrals as planned Is patient prescribed a controlled substance at d/c from ED?: No Referrals: Stephen Khan MD [Primary Care Provider] - 1-2 days
[2020-12-13 13:20] LABS: Amphetamine Screen,Urine Not Detected (NotDetected); Barbiturate Screen,Urine Detected (NotDetected); Benzodiazepines Screen,Urine Detected (NotDetected); Cocaine Screen,Urine Detected (NotDetected); Methadone Screen, Urine Detected (NotDetected); Opiate Screen,Urine Detected (NotDetected); Oxycodone Screen, Urine Not Detected (NotDetected); Phencyclidine Screen,Urine Not Detected (NotDetected); Tricyclic Antidepressant,Urine Not Detected (NotDetected); Urn Cannabinoid Scrn Detected (NotDetected)
[2020-12-13] MEDS ORDERED: NICOTINE 21MG/24HR PATCH TRANSDERM STA (13:39)
[2020-12-13 13:54] VITALS: BP 102/64; PULSE 60
== END 2020-12-13 17:33 | disposition home or self-care (01) ==
LOC: EC 12:15
DX: F14.10 Cocaine abuse, uncomplicated (principal); F43.20 Adjustment disorder, unspecified; G40.909 Epilepsy, unspecified, not intractable, without status epilepticus; F41.9 Anxiety disorder, unspecified; F31.9 Bipolar disorder, unspecified; F17.200 Nicotine dependence, unspecified, uncomplicated; Z79.899 Other long term (current) drug therapy; Z91.040 Latex allergy status
CPT/HCPCS: 80306; 82075; 93005; 99285

== ENCOUNTER 2021-05-02 11:26 | Emergency (ER) | payer OTHER ==
[2021-05-02 12:55] LABS: Appearance,Urine Cloudy (Clear); Bacteria,Urine Moderate /hpf; Bilirubin,Urine Negative (Negative); Blood,Urine Moderate (Negative); Color,Urine Light Yellow; Glucose,Urine (UA) Negative (Negative); Ketones,Urine Negative (Negative); Leukocyte Esterase,Urine Large (Negative); Nitrite,Urine Negative (Negative); Protein,Urine Negative (Negative); RBC,Urine 4 /hpf (0-5); Specific Gravity,Urine 1.008 (1.001-1.035); Urobilinogen,Urine <2.0 mg/dL (<2.0); WBC,Urine >182 /hpf (0-5)
[2021-05-02] MEDS ORDERED: metroNIDAZOLE 500 MG TAB PO STA (13:07)
[2021-05-02] MEDS ORDERED: cefTRIAXone 1,000 MG VIAL (IM USE) IM STA (13:07)
[2021-05-02] MEDS ORDERED: DOXYCYCLINE 100 MG CAP PO STA (13:07)
--- NOTE | 2021-05-02 15:18 | ED ---
Male Urogenital HPI - General Chief complaint: Urogenital Stated complaint: male Time Seen by Provider: 05/02/21 12:14 Source: patient Mode of arrival: ambulatory Limitations: no limitations - History of Present Illness Initial comments: Patient is a 25-year-old male with past medical history of seizure disorder who presents emergency Department complaining of penile discharge. Patient describes a purulent discharge from his penis for the last 5 days. He denies any testicular pain but does endorse mild suprapubic abdominal discomfort. He denies any nausea or vomiting. Denies any fevers, chills, sick contacts. Patient states he does have a history of STI's. He did receive complete treatment for those STI's in the past. He states he has had unprotected sex recently. Otherwise denies any other acute complaints, including fevers, chills, sick contacts, chest pain, shortness of breath. Patient presents for treatment for his suspected sexual transmitted infection. - Related Data Home Medications Medication Instructions Recorded Confirmed FLUoxetine HCL [PROzac] 10 mg PO DAILY@0600 12/13/20 05/02/21 Methadone HCl [Methadone Intensol] 1 dose PO DAILY@59905/02/21 05/02/21 Multivitamins, Thera [Multivitamin 1 tab PO DAILY@59905/02/21 05/02/21 (formulary)] Thiamine [Vitamin B-1] 100 mg PO DAILY@0600 05/02/21 05/02/21 Previous Rx's Medication Instructions Recorded Doxycycline Hyclate 100 mg PO BID 7 Days #14 tab 05/02/21 Allergies Allergy/AdvReac Type Severity Reaction Status Date / Time latex Allergy Rash/Hives Verified 05/02/21 12:43 Review of Systems ROS Statement: Those systems with pertinent positive or pertinent negative responses have been documented in the HPI. Review of Systems: CONST: Denies fever EYES: Denies blurry vision ENT: Denies nasal congestion C/V: Denies Chest pain RESP: Denies shortness of breath GI: Denies abdominal pain : Endorses dysuria, penile discharge SKIN: Denies rash. MSK: Denies joint pain. NEURO: Denies headache ROS Other: All systems not noted in ROS Statement are negative. Past Medical History Past Medical History: Seizure Disorder Additional Past Medical History / Comment(s): CHRONIC NECK PAIN, ANXIETY, BIPOLAR, last seizure last week History of Any Multi-Drug Resistant Organisms: None Reported Past Surgical History: Tonsillectomy Past Psychological History: ADD/ADHD, Anxiety, Bipolar, Depression Smoking Status: Current every day smoker Past Alcohol Use History: Occasional Past Drug Use History: None Reported, Heroin, Marijuana, Opiates, Prescription Drug Abuse - Past Family History Mother Family Medical History: CVA/TIA General Exam - General Exam Comments Initial Comments: General: Appears in no acute distress. HEAD: Normal with no signs of head trauma. EYES: EOMI ENT: Hearing grossly intact RESPIRATORY: Clear breath sounds bilaterally C/V: And rhythm. ABD: Abdomen soft, nondistended. He is minimally tender to palpation in the suprapubic region. There is no guarding. There are no peritoneal signs. He has no CVA tenderness to percussion. EXT: Normal range of motion, no obvious deformity SKIN: No rashes or lesions observed on exposed skin. NEURO: Alert and oriented 4. : Performed in the presence of a male staff member. There is a purulent discharge from the tip of the penis and testicles are nontender to palpation. There are no obvious sores or lesions on the penis. Limitations: no limitations Course Vital Signs 05/02/21 05/02/21 11:40 15:28 Temperature 98.1 F 98.2 F Pulse Rate 77 74 Respiratory 16 18 Rate Blood Pressure 137/89 134/77 O2 Sat by Pulse 98 98 Oximetry Medical Decision Making - Medical Decision Making Based on the patient's presentation and physical exam, do believe he is likely experiencing a sexual transmitted infection. We will obtain a urinalysis as well as gonorrhea and chlamydia urine studies. He'll be empirically treated for sexual transmitted infections with an IM injection of Rocephin, by mouth Flagyl, as well as by mouth doxycycline. He will be given a prescription for 7 days of doxycycline twice a day. He was in agreement with this plan. Patient had a urinalysis that revealed many white blood cells. There is a moderate amount of bacteria. This is likely secondary to STI, which results are still pending. The patient will be discharged home with his empiric doxycycline prescription in stable condition. He was in agreement with this plan. I did vp & general counsel him on safe sex with condoms. - Lab Data Lab Results 05/02/21 Range/Units 12:06 Urine Color Light Yellow Urine Appearance Cloudy (Clear) Urine pH 6.0 (5.0-8.0) Ur Specific [place] 1.008 (1.001-1.035) Urine Protein Negative (Negative) Urine Glucose (UA) Negative (Negative) Urine Ketones Negative (Negative) Urine Blood Moderate H (Negative) Urine Nitrite Negative (Negative) Urine Bilirubin Negative (Negative) Urine Urobilinogen <2.0 (<2.0) mg/dL Ur Leukocyte Esterase Large H (Negative) Urine RBC 4 (0-5) /hpf Urine WBC >182 H (0-5) /hpf Urine WBC Clumps Few H (None) /hpf Urine Bacteria Moderate H (None) /hpf Disposition Clinical Impression: STI (sexually transmitted infection) Disposition: HOME SELF-CARE Condition: Good Instructions (If sedation given, give patient instructions): Urinary Tract Infection in Men (ED) Prescriptions: Doxycycline Hyclate 100 mg PO BID 7 Days #14 tab Is patient prescribed a controlled substance at d/c from ED?: No Referrals: Stephen Khan MD [Primary Care Provider] - 1-2 days
[2021-05-02 15:29] VITALS: BP 134/77; PULSE 74; RESP 18; TEMP 98.2
[2021-05-03 16:18] LABS: C. trachomatis,PCR Negative (Neg,Equiv); Chlamydia trachomatis Source Urine; N. gonorrhoeae,PCR Positive (Neg,Equiv); Neisseria Source Urine
== END 2021-05-02 15:28 | disposition home or self-care (01) ==
LOC: EC 11:26
DX: A64 Unspecified sexually transmitted disease (principal); G40.909 Epilepsy, unspecified, not intractable, without status epilepticus; F41.9 Anxiety disorder, unspecified; F17.200 Nicotine dependence, unspecified, uncomplicated; F31.9 Bipolar disorder, unspecified; F90.9 Attention-deficit hyperactivity disorder, unspecified type; Z91.040 Latex allergy status
CPT/HCPCS: 81001; 87086; 87491; 87591; 96372; 99284

== ENCOUNTER 2021-10-20 03:40 | Emergency (ER) | payer OTHER ==
[2021-10-20 03:50] VITALS: RESP 18; TEMP 97.7
[2021-10-20] MEDS ORDERED: levETIRAcetam IV 1,000 MG in SALINE 1 100ML.BAG IVPB STA (04:14)
--- NOTE | 2021-10-20 04:36 | ED ---
General Adult HPI - General Chief complaint: Anxiety Stated complaint: chest pain, withdrawal Time Seen by Provider: 10/20/21 04:14 Source: patient, EMS Mode of arrival: EMS Limitations: no limitations - History of Present Illness Initial comments: Sami 26-year-old male with a history of polysubstance abuse who presents to the ER today reporting that he feels like he might of had a seizure at home. Patient states that he is addicted to benzodiazepine, Xanax bars and states that he tried to quit cold turkey. He states that he was in his bedroom journaling when he began to feel very weak and shaky. Patient states that next thing he knows he was here at the hospital. Patient states that he is scheduled to enroll at [facility] for rehab on Sunday at 1 PM. He states that he can prevent himself from having another seizure by taking more Xanax prior to going to [facility]. - Related Data Home Medications Medication Instructions Recorded Confirmed FLUoxetine HCL [PROzac] 10 mg PO DAILY@0600 12/13/20 05/02/21 Methadone HCl [Methadone Intensol] 1 dose PO DAILY@0605/02/21 05/02/21 Multivitamins, Thera [Multivitamin 1 tab PO DAILY@59905/02/21 05/02/21 (formulary)] Thiamine [Vitamin B-1] 100 mg PO DAILY@0600 05/02/21 05/02/21 Previous Rx's Medication Instructions Recorded Doxycycline Hyclate 100 mg PO BID 7 Days #14 tab 05/02/21 Allergies Allergy/AdvReac Type Severity Reaction Status Date / Time latex Allergy Rash/Hives Verified 10/20/21 03:41 Review of Systems ROS Statement: Those systems with pertinent positive or pertinent negative responses have been documented in the HPI. ROS Other: All systems not noted in ROS Statement are negative. Past Medical History Past Medical History: Seizure Disorder Additional Past Medical History / Comment(s): CHRONIC NECK PAIN, ANXIETY, BIPOLAR, last seizure last week, drug abuse History of Any Multi-Drug Resistant Organisms: None Reported Past Surgical History: Tonsillectomy Past Psychological History: ADD/ADHD, Anxiety, Bipolar, Depression Smoking Status: Current every day smoker Past Alcohol Use History: Occasional Past Drug Use History: Cocaine, Heroin, Marijuana, Opiates, Prescription Drug Abuse - Past Family History Mother Family Medical History: CVA/TIA General Exam - General Exam Comments Initial Comments: Physical Exam GENERAL: Patient is well-developed and well-nourished. Patient is nontoxic and well-hydrated and is in no distress. HENT: Normocephalic, Atraumatic. EYES: PERRL, EOMI PULMONARY: Unlabored respirations. CARDIOVASCULAR: RRR Warm and well perfused extremities ABDOMEN: Non-distended SKIN: No rashes or bruising : Deferred NEUROLOGIC: Alert and oriented Normal speech Normal gait MUSCULOSKELETAL: Moving all extremities with no apparent injury PSYCHIATRIC: No SI/HI Limitations: no limitations Course Vital Signs 10/20/21 03:42 Temperature 97.7 F Pulse Rate 87 Respiratory 18 Rate Blood Pressure 115/93 O2 Sat by Pulse 100 Oximetry EKG Findings - EKG Comments: EKG Findings:: EKG was obtained due to patient complaining of possible seizure, EKG obtained at 342 rate is 87 rhythm sinus there is a normal axis and normal intervals no acute ST elevations or depressions or evidence of ischemia or infarction. Medical Decision Making - Medical Decision Making She was seen and evaluated history was obtained from patient. Upon arrival patient is feeling back to baseline states he doesn't actually think he needs to be here. Patient states he no week he can prevent further seizures by taking more Xanax. Patient is agreeable to having a dose of Keppra he has been given this in the past. Patient eager for discharge home will be discharged with plan to enroll at [facility] later in the week. Disposition Clinical Impression: Benzodiazepine abuse Disposition: HOME SELF-CARE Condition: Stable Instructions (If sedation given, give patient instructions): Polysubstance Abuse (ED) Is patient prescribed a controlled substance at d/c from ED?: No Referrals: Stephen Khan MD [Primary Care Provider] - 1-2 days
[2021-10-20 04:46] VITALS: PULSE 96
[2021-10-20 05:00] VITALS: BP 133/66
== END 2021-10-20 05:04 | disposition home or self-care (01) ==
LOC: EC 03:40
DX: F13.10 Sedative, hypnotic or anxiolytic abuse, uncomplicated (principal); G40.909 Epilepsy, unspecified, not intractable, without status epilepticus; F31.9 Bipolar disorder, unspecified; F41.9 Anxiety disorder, unspecified; F90.9 Attention-deficit hyperactivity disorder, unspecified type; F17.200 Nicotine dependence, unspecified, uncomplicated; F12.90 Cannabis use, unspecified, uncomplicated; F11.90 Opioid use, unspecified, uncomplicated; F14.90 Cocaine use, unspecified, uncomplicated
CPT/HCPCS: 93005; 99284; 96374; J1953

== ENCOUNTER 2022-08-19 19:55 | Emergency (ER) | payer OTHER ==
[2022-08-19 20:26] VITALS: RESP 16; TEMP 98
[2022-08-19] MEDS ORDERED: SODIUM CHLORIDE 0.9% 1,000 ML IV STA (20:52)
[2022-08-19] MEDS ORDERED: LORazepam 2 MG/ML INJ IV STA ×2 (20:53→23:47)
[2022-08-19 22:28] LABS: Basophils % (A) 1 %; Eosinophils # (A) 0.1 k/uL (0-0.7); Eosinophils % (A) 1 %; HCT 42.7 % (39.0-53.0); HGB 15.2 gm/dL (13.0-17.5); Lymphocytes # (A) 3.7 k/uL (1.0-4.8); Lymphocytes % (A) 48 %; MCH 32.8 pg (25.0-35.0); MCHC 35.6 g/dL (31.0-37.0); Mean Platelet Volume 7.6; Monocytes # (A) 0.3 k/uL (0-1.0); Monocytes % (A) 3 %; Neutrophils # (A) 3.5 k/uL (1.3-7.7); Neutrophils % (A) 46 %; Platelet Count 330 k/uL (150-450); RBC 4.64 m/uL (4.30-5.90); RDW 12.9 % (11.5-15.5); WBC 7.7 k/uL (3.8-10.6)
--- NOTE | 2022-08-19 22:37 | ED ---
Alcohol HPI - General Chief Complaint: Alcohol Stated Complaint: withdrawals Time Seen by Provider: 08/19/22 20:40 Source: patient, EMS Mode of arrival: EMS - History of Present Illness Initial Comments: 27-year-old male with past history of seizure disorder, chronic polysubstance abuse presents emergency room reporting benzo withdrawal. States that he has been taking valium that he has been buying off the street. He has not had any in the past 3 days. Patient also admits to meth, cocaine and heroin use. Presents today for withdrawal. He was in our emergency department earlier today, left and went to an urgent care where EMS was called. He reports to chest pain, tremors, nausea due to withdrawal. He has had previous withdrawal seizures however none currently. Patient is scheduled to go to rehab on Sunday. Reports that he has been drinking alcohol to "take the edge off". He denies depression, suicidal ideation - Related Data Home Medications Medication Instructions Recorded Confirmed FLUoxetine HCL [PROzac] 10 mg PO DAILY@0600 12/13/20 05/02/21 Methadone HCl [Methadone Intensol] 1 dose PO DAILY@0600 05/02/21 05/02/21 Multivitamins, Thera [Multivitamin 1 tab PO DAILY@0600 05/02/21 05/02/21 (formulary)] Thiamine [Vitamin B-1] 100 mg PO DAILY@0600 05/02/21 05/02/21 Previous Rx's Medication Instructions Recorded Doxycycline Hyclate 100 mg PO BID 7 Days #14 tab 05/02/21 LORazepam [Ativan] 1 mg PO TID 3 Days #9 tab 08/19/22 Allergies Allergy/AdvReac Type Severity Reaction Status Date / Time latex Allergy Rash/Hives Verified 10/20/21 03:41 Review of Systems ROS Statement: Those systems with pertinent positive or pertinent negative responses have been documented in the HPI. ROS Other: All systems not noted in ROS Statement are negative. Past Medical History Past Medical History: Seizure Disorder Additional Past Medical History / Comment(s): CHRONIC NECK PAIN, ANXIETY, BIPOLAR, last seizure last week, drug abuse History of Any Multi-Drug Resistant Organisms: None Reported Past Surgical History: Tonsillectomy Past Psychological History: ADD/ADHD, Anxiety, Bipolar, Depression Smoking Status: Current every day smoker Past Alcohol Use History: Occasional Past Drug Use History: Cocaine, Heroin, Marijuana, Opiates, Prescription Drug Abuse - Past Family History Mother Family Medical History: CVA/TIA General Exam General appearance: alert, in no apparent distress, anxious Head exam: Present: atraumatic, normocephalic, normal inspection Eye exam: Present: normal appearance, PERRL, EOMI. Absent: scleral icterus, conjunctival injection, periorbital swelling ENT exam: Present: normal exam, mucous membranes moist Neck exam: Present: normal inspection. Absent: tenderness, meningismus, lymphadenopathy Respiratory exam: Present: normal lung sounds bilaterally. Absent: respiratory distress, wheezes, rales, rhonchi, stridor Cardiovascular Exam: Present: regular rate, normal rhythm, normal heart sounds. Absent: systolic murmur, diastolic murmur, rubs, gallop, clicks GI/Abdominal exam: Present: soft, normal bowel sounds. Absent: distended, tenderness, guarding, rebound, rigid Extremities exam: Present: normal inspection, full ROM, normal capillary refill. Absent: tenderness, pedal edema, joint swelling, calf tenderness Back exam: Present: normal inspection Neurological exam: Present: alert, oriented X3, CN II-XII intact Psychiatric exam: Present: normal affect, normal mood Skin exam: Present: warm, dry, intact, normal color. Absent: rash Course Vital Signs 08/19/22 08/19/22 08/19/22 20:18 22:42 23:55 Temperature 98.0 F Pulse Rate 72 84 73 Respiratory 16 16 16 Rate Blood Pressure 120/92 136/80 131/67 O2 Sat by Pulse 98 100 99 Oximetry 08/19/22 23:58 Temperature Pulse Rate Respiratory 16 Rate Blood Pressure 131/63 O2 Sat by Pulse 99 Oximetry Medical Decision Making - Medical Decision Making Upon arrival patient was placed into room 8. Thorough history and physical exam is performed. IV access was established. Patient is administered IV fluids and some Ativan. Laboratory studies are conducted. Chest x-rays performed. Patient will be discharged home at this time with a small prescription for Ativan. He is scheduled to go to rehab on Sunday. Instructed to use the Ativan as needed until his scheduled appointment on Sunday. Mother is at bedside and is agreeable to assist the patient in getting to rehab. Patient persuaded not to abuse the prescription for which she understood. He is to return for any new or worsening symptoms. Patient discharged home in stable condition - Lab Data Result diagrams: 08/19/22 21:31 08/19/22 21:31 Lab Results 08/19/22 08/19/22 08/19/22 Range/Units 21:31 21:31 21:31 WBC 7.7 (3.8-10.6) k/uL RBC 4.64 (4.30-5.90) m/uL Hgb 15.2 (13.0-17.5) gm/dL Hct 42.7 (39.0-53.0) % MCV 92.0 (80.0-100.0) fL MCH 32.8 (25.0-35.0) pg MCHC 35.6 (31.0-37.0) g/dL RDW 12.9 (11.5-15.5) % Plt Count 330 (150-450) k/uL MPV 7.6 Neutrophils % 46 % Lymphocytes % 48 % Monocytes % 3 % Eosinophils % 1 % Basophils % 1 % Neutrophils # 3.5 (1.3-7.7) k/uL Lymphocytes # 3.7 (1.0-4.8) k/uL Monocytes # 0.3 (0-1.0) k/uL Eosinophils # 0.1 (0-0.7) k/uL Basophils # 0.0 (0-0.2) k/uL Sodium 138 (137-145) mmol/L Potassium 4.0 (3.5-5.1) mmol/L Chloride 100 (98-107) mmol/L Carbon Dioxide 24 (22-30) mmol/L Anion Gap 14 mmol/L BUN 10 (9-20) mg/dL Creatinine 0.46 L (0.66-1.25) mg/dL Est GFR (CKD-EPI)AfAm >90 (>60 ml/min/1.73 sqM) Est GFR (CKD-EPI)NonAf >90 (>60 ml/min/1.73 sqM) Glucose 85 (74-99) mg/dL Calcium 9.5 (8.4-10.2) mg/dL Total Bilirubin 0.3 (0.2-1.3) mg/dL AST 41 (17-59) U/L ALT 19 (4-49) U/L Alkaline Phosphatase 107 (38-126) U/L Troponin I <0.012 (0.000-0.034) ng/mL Total Protein 7.3 (6.3-8.2) g/dL Albumin 4.7 (3.5-5.0) g/dL Lipase 39 (23-300) U/L Salicylates <1.0 mg/dL Urine Opiates Screen (NotDetected) Ur Oxycodone Screen (NotDetected) Urine Methadone Screen (NotDetected) Ur Propoxyphene Screen (NotDetected) Acetaminophen <10.0 ug/mL Ur Barbiturates Screen (NotDetected) U Tricyclic Antidepress (NotDetected) Ur Phencyclidine Scrn (NotDetected) Ur Amphetamines Screen (NotDetected) U Methamphetamines Scrn (NotDetected) U Benzodiazepines Scrn (NotDetected) Urine Cocaine Screen (NotDetected) U Marijuana (THC) Screen (NotDetected) Serum Alcohol <10 mg/dL 08/19/22 Range/Units 21:52 WBC (3.8-10.6) k/uL RBC (4.30-5.90) m/uL Hgb (13.0-17.5) gm/dL Hct (39.0-53.0) % MCV (80.0-100.0) fL MCH (25.0-35.0) pg MCHC (31.0-37.0) g/dL RDW (11.5-15.5) % Plt Count (150-450) k/uL MPV Neutrophils % % Lymphocytes % % Monocytes % % Eosinophils % % Basophils % % Neutrophils # (1.3-7.7) k/uL Lymphocytes # (1.0-4.8) k/uL Monocytes # (0-1.0) k/uL Eosinophils # (0-0.7) k/uL Basophils # (0-0.2) k/uL Sodium (137-145) mmol/L Potassium (3.5-5.1) mmol/L Chloride (98-107) mmol/L Carbon Dioxide (22-30) mmol/L Anion Gap mmol/L BUN (9-20) mg/dL Creatinine (0.66-1.25) mg/dL Est GFR (CKD-EPI)AfAm (>60 ml/min/1.73 sqM) Est GFR (CKD-EPI)NonAf (>60 ml/min/1.73 sqM) Glucose (74-99) mg/dL Calcium (8.4-10.2) mg/dL Total Bilirubin (0.2-1.3) mg/dL AST (17-59) U/L ALT (4-49) U/L Alkaline Phosphatase (38-126) U/L Troponin I (0.000-0.034) ng/mL Total Protein (6.3-8.2) g/dL Albumin (3.5-5.0) g/dL Lipase (23-300) U/L Salicylates mg/dL Urine Opiates Screen Not Detected (NotDetected) Ur Oxycodone Screen Not Detected (NotDetected) Urine Methadone Screen Not Detected (NotDetected) Ur Propoxyphene Screen Not Detected (NotDetected) Acetaminophen ug/mL Ur Barbiturates Screen Detected H (NotDetected) U Tricyclic Antidepress Not Detected (NotDetected) Ur Phencyclidine Scrn Not Detected (NotDetected) Ur Amphetamines Screen Detected H (NotDetected) U Methamphetamines Scrn Detected H (NotDetected) U Benzodiazepines Scrn Not Detected (NotDetected) Urine Cocaine Screen Not Detected (NotDetected) U Marijuana (THC) Screen Not Detected (NotDetected) Serum Alcohol mg/dL - EKG Data EKG Comments: EKG demonstrates sinus bradycardia with a rate of 58. DC interval 143. QRS 11. QTC of 405. No acute ST segment elevations or depressions Disposition Clinical Impression: Benzodiazepine withdrawal Disposition: HOME SELF-CARE Condition: Stable Instructions (If sedation given, give patient instructions): Polysubstance Abuse (ED) Additional Instructions: Take the benzodiazepines only as directed and present to your rehab facility on Sunday. Return for any new or worsening symptoms Prescriptions: LORazepam [Ativan] 1 mg PO TID 3 Days #9 tab Is patient prescribed a controlled substance at d/c from ED?: Yes When asked, does pt state using other controlled substances?: No Referrals: None,Stated [Primary Care Provider] - 1-2 days Time of Disposition: 23:24
[2022-08-19 22:41] LABS: ALT 19 U/L (4-49); AST 41 U/L (17-59); Acetaminophen <10.0 ug/mL; African American GFR (CKD) >90 (>60 ml/min/1.73 sqM); Albumin 4.7 g/dL (3.5-5.0); Alcohol <10 mg/dL; Alkaline Phosphatase 107 U/L (38-126); Anion Gap 14 mmol/L; Blood Urea Nitrogen 10 mg/dL (9-20); Calcium 9.5 mg/dL (8.4-10.2); Carbon Dioxide 24 mmol/L (22-30); Chloride 100 mmol/L (98-107); Glucose 85 mg/dL (74-99); Lipase 39 U/L (23-300); Non-African American GFR(CKD) >90 (>60 ml/min/1.73 sqM); Salicylate <1.0 mg/dL; Sodium 138 mmol/L (137-145); Total Bilirubin 0.3 mg/dL (0.2-1.3); Total Protein 7.3 g/dL (6.3-8.2)
--- NOTE | 2022-08-19 22:46 | XR ---
EXAMINATION TYPE: XR chest 2V DATE OF EXAM: 08/19/2022 COMPARISON: NONE HISTORY: Cough TECHNIQUE: 2 views FINDINGS: Heart and mediastinum are normal. Lungs are clear. Diaphragm is normal. Bony thorax appears normal. IMPRESSION: Normal chest
[2022-08-19 23:03] LABS: Amphetamine Screen,Urine Detected (NotDetected); Barbiturate Screen,Urine Detected (NotDetected); Benzodiazepines Screen,Urine Not Detected (NotDetected); Cocaine Screen,Urine Not Detected (NotDetected); Methadone Screen, Urine Not Detected (NotDetected); Opiate Screen,Urine Not Detected (NotDetected); Oxycodone Screen, Urine Not Detected (NotDetected); Phencyclidine Screen,Urine Not Detected (NotDetected); Tricyclic Antidepressant,Urine Not Detected (NotDetected); Urn Cannabinoid Scrn Not Detected (NotDetected)
[2022-08-19 23:56] VITALS: PULSE 73
[2022-08-20 00:01] VITALS: BP 131/63
== END 2022-08-20 00:01 | disposition home or self-care (01) ==
LOC: EC 19:55
DX: F19.239 Other psychoactive substance dependence with withdrawal, unspecified (principal); F17.200 Nicotine dependence, unspecified, uncomplicated; Z91.040 Latex allergy status
CPT/HCPCS: 96374; 96376 ×2; 96361 ×2; 99285; 96372; 99284; 36415; 93005; 80053; 83690; 84484; 85025; 80306; 80143; 80179; 71046; G0480; J2060; 80320